=== PATIENT | male | born 1950 | race Caucasian/White ===

== ENCOUNTER 2024-03-16 18:22 | Emergency (ER) | payer OTHER ==
[~2024-03-16] VITALS: Ht 190.5 cm; Wt 140.9 kg
[2024-03-16 18:30] VITALS: BP 168/86; PULSE 78; RESP 16; TEMP 97.7; O2SAT 97
[2024-03-16] MEDS ORDERED: ACYC-129 PO (19:16)
== END 2024-03-16 19:23 | disposition home or self-care (01) ==
LOC: ER 18:23
DX: B02.9 Zoster without complications (principal)
CPT/HCPCS: 99283